=== PATIENT | male | born 1980 | race African-American/Black ===

== ENCOUNTER 2017-06-13 14:23 | Outpatient (CLI) | payer MEDICARE, MEDICAID | END 2017-06-13 14:24 | disposition home or self-care (01) | LOC: BICRAD 14:23 | PROVIDERS: ATTEND Student in an Organized Health Care Education/Training Program | DX: J18.9 Pneumonia, unspecified organism (principal) | CPT/HCPCS: 71046 ==

== ENCOUNTER 2018-11-24 16:58 | Inpatient (IN) | payer MEDICARE, MEDICAID ==
--- NOTE | 2018-11-24 17:37 | RAD ---
EXAM: Chest PA and lateral: HISTORY: Cough. Congestion. COMPARISON: 05/17/2010 FINDINGS: Heart: Cardiomegaly. Aorta: Mild pulmonary vascular prominence. Pulmonary vessels: Normal Costophrenic angles: Costophrenic angles are clear. Lungs: Bibasilar interstitial and alveolar opacities. Air bronchograms in the left lower lobe. Pneumothorax: No pneumothorax Osseous structures: No osseous abnormalities IMPRESSION: 1. Congestive heart failure. 2. Superimposed left lower lobe infiltrate. Continued surveillance to ensure resolution.
[2018-11-24] MEDS ORDERED: Piperacillin/Tazobactam 4.5 GM VIAL ONE (17:43)
[2018-11-24 17:51] LABS: #Lymphocytes 1.2 thou/uL (1.20-3.40); #Monocytes 0.5 thou/uL (0.11-0.59); #Neutrophils 1.9 thou/uL (1.40-6.50); %Basophils 0.9 % (0.0-1.0); %Eosinophils 1.3 % (0.0-10.0); %Lymphocytes 32.6 % (21.0-51.0); %Monocytes 13.4 % (0.0-10.0); %Neutrophils 51.9 % (42.0-75.0); Hemoglobin 15.3 g/dL (14.0-18.0); Mean Corpuscular HGB CONC 31.6 g/dL (32.0-36.0); Mean Corpuscular Hemoglobin 29.1 pg (27.0-31.0); RBC Distribution Width 12.4 % (11.5-14.5); Red Blood Cell (RBC) Count 5.27 mill/uL (4.70-6.10); White Blood Cell (WBC) Count 3.7 thou/uL (4.8-10.8)
[2018-11-24 18:08] LABS: Mean Platelet Volume 9.4 fL (7.4-10.4); Platelet Count 114 thou/uL (130-400)
[2018-11-24 18:09] LABS: ALT (SGPT) 24 U/L (8-55); AST (SGOT) 25 U/L (5-34); Albumin 3.6 g/dL (3.5-5.0); Alkaline Phosphatase 77 U/L (40-150); Anion Gap 12 mmol/L (10-20); BUN (Urea Nitrogen) 13 mg/dL (8.9-20.6); Bilirubin, Total 0.8 mg/dL (0.2-1.2); Calc. Creatinine Clearance 0 mL/min (70-130); Calcium 9.3 mg/dL (7.8-10.44); Carbon Dioxide 28 mmol/L (22-29); Chloride 104 mmol/L (98-107); Estimated GFR-MDRD Greater than 90; Globulin 4.2 g/dL (2.4-3.5); Glucose 90 mg/dL (70-105); Potassium 3.5 mmol/L (3.5-5.1); Protein, Total 7.8 g/dL (6.0-8.3); Sodium 140 mmol/L (136-145)
--- NOTE | 2018-11-24 18:55 | PDOC.FPRHP ---
- History of Present Illness Chief Complaint: cough History of Present Illness: 38yo M with pmh of HIV presents from clinic with 2 week hx of worsening cough and congestion with 2 day hx of associated SOB. Denies fever/chills, no CP, no orthopnea, no paroxysmal nocturnal dyspnea. No transforming factors. No other related symptoms per ROS below. In clinic pt was reported to be unable to finish sentences without taking a breath 2/2 sob but since arrival at ED pt reports he is feeling much better and is no longer SOB. Pt also has hx of depression (no longer requiring meds) but reports return of some depressive symptoms over the last 2 days. Regarding HIV status pt is on genvoya and follows with Dr. Kasper. He reports good compliance with his medications and reports that was given good report at his last visit. ED Course: Damir Love duoneb - Allergies/Adverse Reactions Allergies Allergy/AdvReac Type Severity Reaction Status Date / Time No Known Drug Allergies Allergy Unverified 11/24/18 20:10 pecan nut Allergy Verified 11/24/18 20:30 - Home Medications Medication Instructions Recorded Confirmed Type Cetirizine HCl [Zyrtec] 10 mg PO DAILY 11/24/18 11/24/18 History Elviteg/Cob/Emtri/Tenof Alafen 1 each PO DAILY 11/24/18 11/24/18 History [Genvoya Tablet] Gabapentin [Gralise] 300 mg PO BID 11/24/18 11/24/18 History Oxybutynin Chloride [Oxybutynin 5 mg PO DAILY 11/24/18 11/24/18 History Chloride ER] - History PMHx: HIV, Depression PSHx: none FHx: CAD, HTN Social: smokes 1-2 cigarettes per day for last 15 years, no alcohol/drugs - Review of Systems General: denies: fever/chills, fatigue ENT: reports: nasal congestion. denies: rhinorrhea Respiratory: reports: cough, congestion, shortness of breath Cardiovascular: denies: chest pain, palpitation, edema, paroxysmal nocturnal dyspnea, orthopnea Gastrointestinal: reports: constipation (last BM 1 week ago). denies: nausea, vomiting, diarrhea Genitourinary: denies: dysuria, polyuria Skin: denies: rashes, lesions Musculoskeletal: denies: pain, tenderness Neurological: denies: numbness, syncope, seizure Psychological: reports: depression. denies: anxiety - Vital signs BP: 140/106, Pulse: 104, Resp: 22, Temp: 98.7 (Oral), Pain: 3, O2 sat: 96 on Room Air, Time: 11/24/2018 17:01. weight 103kg - Physical Exam Constitutional: NAD, awake, alert and oriented HEENT: EOMI, grossly normal vision, grossly normal hearing, MMM Neck: supple, trachea midline Chest: no-tender to palpation Heart: RRR, normal S1/S2 Lungs: no respiratory distress, other (inspiratory/expiratory crackles on R mid and lower lung) Abdomen: soft, non-tender Musculoskeletal: normal structure, normal tone Neurological: no focal deficit, normal sensation Skin: no rash/lesions, good turgor Heme/Lymphatic: no purpura, no petechia Psychiatric: normal mood and affect, good judgment and insight FMR H&P: Results - Labs Result Diagrams: 11/24/18 17:20 11/24/18 17:20 Lab results: WBC 3.7 thou/uL (4.8-10.8) L 11/24/18 17:20 Hgb 15.3 g/dL (14.0-18.0) 11/24/18 17:20 Hct 48.5 % (42.0-52.0) 11/24/18 17:20 MCV 92.0 fL (78.0-98.0) 11/24/18 17:20 Plt Count 114 thou/uL (130-400) L 11/24/18 17:20 Neutrophils % 51.9 % (42.0-75.0) 11/24/18 17:20 Sodium 140 mmol/L (136-145) 11/24/18 17:20 Potassium 3.5 mmol/L (3.5-5.1) 11/24/18 17:20 Chloride 104 mmol/L (98-107) 11/24/18 17:20 Carbon Dioxide 28 mmol/L (22-29) 11/24/18 17:20 BUN 13 mg/dL (8.9-20.6) 11/24/18 17:20 Creatinine 1.03 mg/dL (0.7-1.3) 11/24/18 17:20 Glucose 90 mg/dL (70-105) 11/24/18 17:20 Lactic Acid 0.8 mmol/L (0.5-2.2) 11/24/18 17:54 Calcium 9.3 mg/dL (7.8-10.44) 11/24/18 17:20 Total Bilirubin 0.8 mg/dL (0.2-1.2) 11/24/18 17:20 AST 25 U/L (5-34) 11/24/18 17:20 ALT 24 U/L (8-55) 11/24/18 17:20 Alkaline Phosphatase 77 U/L (40-150) 11/24/18 17:20 B-Natriuretic Peptide 32.6 pg/mL (0-100) 11/24/18 17:20 Serum Total Protein 7.8 g/dL (6.0-8.3) 11/24/18 17:20 Albumin 3.6 g/dL (3.5-5.0) 11/24/18 17:20 FMR H&P: A/P - Problem List (1) Sepsis Current Visit: Yes Status: Acute Code(s): A41.9 - SEPSIS, UNSPECIFIED ORGANISM (2) CAP (community acquired pneumonia) Current Visit: Yes Status: Acute Code(s): J18.9 - PNEUMONIA, UNSPECIFIED ORGANISM (3) Leukopenia Current Visit: Yes Status: Acute Code(s): D72.819 - DECREASED WHITE BLOOD CELL COUNT, UNSPECIFIED (4) Constipation Current Visit: Yes Status: Acute Code(s): K59.00 - CONSTIPATION, UNSPECIFIED (5) History of depression Current Visit: Yes Status: Acute Code(s): Z86.59 - PERSONAL HISTORY OF OTHER MENTAL AND BEHAVIORAL DISORDERS (6) HIV disease Current Visit: Yes Status: Acute Code(s): B20 - HUMAN IMMUNODEFICIENCY VIRUS [HIV] DISEASE - Plan Sepsis 2/2 CAP in the setting of leukopenia 2/2 HIV A- pt meeting sirs criteria on admission though looking much better clinically after duoneb and first dose of ABX. Absolute neutrophil count 1920 showing no neutropenia. CXR shows R lower lobe infiltrate. LA at 0.8. WBC 3.2. Presentation atypical for pneumocystis P- continue Vancomycin and Zosyn -LR at 125ml/hr, likely transition to PO tomorrow if pt remains stable not meeting SIRS criteria -duoneb prn -mucinex -solumedrol 125mg x1 -CD4 count and [id number] for further risk stratification for pneumocystis pneumonia -influenza/viral resp panel -urine legionella and s. pneumoniae ag -procal -AM procal/CBC Constipation A- no BM in 1 week on ROS, no pain/distension P- miralax now -senna prn cardiomegaly A- other than SOB and cardiomegaly on CXR no s/s of CHF. BNP 32. Pt is not fluid overloaded. P- will get ECHO depression A- pt not requiring medication but has years ago. currently since pt has sx for only 2 days he does not meet criteria for MDD Dx P- f/u outpt if symptoms persist HIV A- reports to be well controlled, does not know recent cd4 count P- will check CD4 -continue home meds CODE: FULL
[2018-11-24] MEDS ORDERED: Calcium Carbonate 500 MG ChewTAB PO PRN (19:36)
[2018-11-24] MEDS ORDERED: Senokot S 8.6-50 MG TAB PO PRN (19:36)
[2018-11-24] MEDS ORDERED: Acetaminophen 325 MG TAB PO PRN (19:36)
[2018-11-24] MEDS ORDERED: Ondansetron ODT 4 MG TAB PO PRN (19:36)
[2018-11-24] MEDS ORDERED: Melatonin 3 MG TAB PO PRN (19:39)
[2018-11-24] MEDS ORDERED: Polyethylene Glycol 3350 17 GM Packet PO SCH (20:15)
[2018-11-24 20:18] VITALS: BMI 33.7
[2018-11-24] MEDS: Lactated Ringer's 1,000 ML IV SCH (21:10)
[2018-11-24] MEDS ORDERED: methylPREDNISolone Sod Succ/PF 125 MG/2 ML VIAL IVP SCH (22:00)
[2018-11-25] MEDS: Vancomycin HCl 1.75 GM in Sodium Chloride 0.9% 500 ML IVPB SCH ×3 (01:26→16:13)
[2018-11-25] MEDS: Lactated Ringer's 1,000 ML IV SCH ×2 (03:49→12:20)
[2018-11-25 04:08] LABS: Strep pneumo Urine Ag NEGATIVE (NEGATIVE)
[2018-11-25 04:09] LABS: Legionella Urinary Ag Negative (Negative)
[2018-11-25 05:21] LABS: Anion Gap 12 mmol/L (10-20); BUN (Urea Nitrogen) 12 mg/dL (8.9-20.6); Calc. Creatinine Clearance 142 mL/min (70-130); Calcium 9.1 mg/dL (7.8-10.44); Carbon Dioxide 24 mmol/L (22-29); Chloride 105 mmol/L (98-107); Estimated GFR-MDRD Greater than 90; Glucose 137 mg/dL (70-105); Potassium 3.4 mmol/L (3.5-5.1); Sodium 138 mmol/L (136-145)
[2018-11-25 05:44] LABS: Band 3 % (5-11); Hemoglobin 15.5 g/dL (14.0-18.0); Large Platelets SLIGHT; Lymphocytes 14 % (21-51); MDiff Complete? YES; Mean Corpuscular HGB CONC 31.5 g/dL (32.0-36.0); Mean Corpuscular Hemoglobin 29.3 pg (27.0-31.0); Mean Corpuscular Volume 92.8 fL (78.0-98.0); Mean Platelet Volume 9.8 fL (7.4-10.4); Monocytes 3 % (0-10); Neutrophil 79 % (42-75); Platelet Count 114 thou/uL (130-400); Platelet Morphology Comment Appears Decreased; RBC Distribution Width 12.4 % (11.5-14.5); Reactive Lymphocytes 1 % (0-10); Red Blood Cell (RBC) Count 5.29 mill/uL (4.70-6.10); White Blood Cell (WBC) Count 4.7 thou/uL (4.8-10.8)
--- NOTE | 2018-11-25 05:51 | PDOC.FM ---
- Subjective Subjective: Pt denies any complaints through the night aside from feeling warm. He feels like his breathing has improved compared to the last few days. Denies feeling any fevers or chills per say. - Objective MAR Reviewed: Yes Vital Signs & Weight: Vital Signs (12 hours) Temp Pulse Resp BP Pulse Ox 11/25/18 04:05 98.4 F 54 L 22 H 173/97 H 94 L 11/25/18 00:00 99.1 F 69 20 149/99 H 91 L 11/24/18 20:17 98.0 F 83 20 157/80 H 93 L Weight Weight 109.724 kg Result Diagrams: 11/25/18 04:11 11/25/18 04:11 Phys Exam - Physical Examination Constitutional: NAD HEENT: moist MMs Neck: full ROM Crackles and soft fine wheezes throughout Diminished at the bases Cardiovascular: RRR, no significant murmur Gastrointestinal: soft, non-tender Musculoskeletal: no edema Psychiatric: normal affect, A&O x 3 Deviation from normal: Pt was very diaphoretic, gown was wet to touch Dx/Plan (1) CAP (community acquired pneumonia) Code(s): J18.9 - PNEUMONIA, UNSPECIFIED ORGANISM Status: Acute Qualifiers: Laterality: right Lung location: lower lobe of lung Qualified Code(s): J18.1 - Lobar pneumonia, unspecified organism (2) HIV disease Code(s): B20 - HUMAN IMMUNODEFICIENCY VIRUS [HIV] DISEASE Status: Acute (3) History of depression Code(s): Z86.59 - PERSONAL HISTORY OF OTHER MENTAL AND BEHAVIORAL DISORDERS Status: Acute (4) Leukopenia Code(s): D72.819 - DECREASED WHITE BLOOD CELL COUNT, UNSPECIFIED Status: Acute Qualifiers: Leukopenia type: lymphocytopenia Qualified Code(s): D72.810 - Lymphocytopenia (5) Sepsis Code(s): A41.9 - SEPSIS, UNSPECIFIED ORGANISM Status: Acute Qualifiers: Sepsis type: sepsis due to unspecified organism Qualified Code(s): A41.9 - Sepsis, unspecified organism (6) Constipation Code(s): K59.00 - CONSTIPATION, UNSPECIFIED Status: Acute - Plan Plan: Sepsis 2/2 CAP in the setting of leukopenia 2/2 HIV - Met sirs criteria on presentation. Absolute neutrophil count 1920 showing no neutropenia. CXR shows left lower lobe infiltrate. Presentation atypical for pneumocystis - continue Vancomycin and Zosyn -LR at 125ml/hr for sepsis, attempt transition to PO today -duoneb prn -mucinex -solumedrol 125mg x1 -CD4 count and [id number] for further risk stratification for pneumocystis pneumonia -influenza/viral resp panel -urine legionella and s. pneumoniae ag were negative -procal negative x2 -WBC 3.7 -> 4.7 -Flu negative, Resp culture normal manda, preliminary BC no growth -Spoke with Dr. Kasper, stated that pt's last CD4 was 203, agreed with current plan of treating as a CAP Constipation - no BM in 1 week on ROS, no pain/distension - miralax now - senna prn Cardiomegaly - other than SOB and cardiomegaly on CXR no s/s of CHF. BNP 32. Pt is not fluid overloaded. - will get ECHO today Depressive sx - pt not requiring medication but has years ago. currently since pt has sx for only 2 days he does not meet criteria for MDD Dx - f/u outpt if symptoms persist HIV - reports to be well controlled, does not know recent cd4 count - will check CD4 -continue home meds Hypokalemia - Potassium 3.4 - Supplement with 40 KCl CODE: FULL Dispo: Medical floor Expected LOS: 2-4 days
[2018-11-25] MEDS: Piperacillin/Tazobactam 4.5 GM in Sodium Chloride 0.9% 100 ML IVPB SCH ×4 (06:03→17:58)
[2018-11-25] MEDS: guaiFENesin ER 600 MG TAB PO SCH ×2 (07:45→20:35)
[2018-11-25] MEDS: Loratadine 10 MG TAB PO SCH (07:45)
[2018-11-25] MEDS: Enoxaparin Sodium 40 MG/0.4 ML SYRINGE SC SCH (07:45)
[2018-11-25] MEDS ORDERED: Potassium Chloride 20 MEQ TAB PO SCH (08:00)
[2018-11-25] MEDS ORDERED: (Elviteg/Cob/Emtri/Tenof Alafen [Genvoya Tablet] PO SCH (09:00)
[2018-11-25] MEDS: Oxybutynin ER 5 MG TAB PO SCH (11:10)
--- NOTE | 2018-11-25 12:29 | PRG ---
DATE OF SERVICE: 11/25/2018 I have discussed the case with Dr. Trip Kennedy and agree with his assessment plan. Mr. Soto is a pleasant 38-year-old black man with HIV treated with retroviral therapy per Dr. Kasper. He was admitted with some cough and shortness of breath and found to have pneumonia. Clinically, he looks and feels much better today. We will continue his antibiotic treatment in anticipation of possibly discharging him on Tuesday. Job ID: [id number]
[2018-11-25] MEDS ORDERED: Azithromycin 250 MG TAB PO SCH (18:15)
[2018-11-25] MEDS: Cefdinir 300 MG CAP PO SCH (20:34)
[2018-11-25] MEDS: hydrOXYzine 25 MG TAB PO PRN (21:13)
[2018-11-26] MEDS: Lactated Ringer's 1,000 ML IV SCH ×2 (04:40)
--- NOTE | 2018-11-26 06:05 | PDOC.FM ---
- Subjective Subjective: Pt states he is doing much better this morning. He was able to ambulate outside and denies experiencing any SOB with this. He does note continued improvement following duoneb treatments. No supplemental O2 requirements. Was advised that his cultures came back positive for pseudomonas and we would change abx appropriately. - Objective MAR Reviewed: Yes Vital Signs & Weight: Vital Signs (12 hours) Temp Pulse Resp BP Pulse Ox 11/25/18 20:00 98.6 F 74 18 131/76 92 L 11/25/18 19:39 92 L 11/25/18 19:01 95 16 95 Weight Admit Weight 109.724 kg Weight 109.724 kg I&O: 11/24/18 11/25/18 11/26/18 06:59 06:59 06:59 Intake Total 1319 960 Balance 1319 960 Result Diagrams: 11/26/18 06:21 11/26/18 06:21 Phys Exam - Physical Examination Constitutional: NAD HEENT: moist MMs Neck: supple, full ROM Respiratory: no wheezing, no rhonchi Diffuse rales in middle and lower [place], diminished in LLL Cardiovascular: RRR, no significant murmur Gastrointestinal: soft, non-tender Musculoskeletal: no edema, pulses present Neurological: moves all 4 limbs Psychiatric: normal affect, A&O x 3 Skin: no rash Dx/Plan (1) CAP (community acquired pneumonia) Code(s): J18.9 - PNEUMONIA, UNSPECIFIED ORGANISM Status: Acute Qualifiers: Laterality: right Lung location: lower lobe of lung Qualified Code(s): J18.1 - Lobar pneumonia, unspecified organism (2) HIV disease Code(s): B20 - HUMAN IMMUNODEFICIENCY VIRUS [HIV] DISEASE Status: Acute (3) History of depression Code(s): Z86.59 - PERSONAL HISTORY OF OTHER MENTAL AND BEHAVIORAL DISORDERS Status: Acute (4) Leukopenia Code(s): D72.819 - DECREASED WHITE BLOOD CELL COUNT, UNSPECIFIED Status: Acute Qualifiers: Leukopenia type: lymphocytopenia Qualified Code(s): D72.810 - Lymphocytopenia (5) Sepsis Code(s): A41.9 - SEPSIS, UNSPECIFIED ORGANISM Status: Acute Qualifiers: Sepsis type: sepsis due to unspecified organism Qualified Code(s): A41.9 - Sepsis, unspecified organism (6) Constipation Code(s): K59.00 - CONSTIPATION, UNSPECIFIED Status: Resolved Qualifiers: Constipation type: chronic idiopathic constipation Qualified Code(s): K59.04 - Chronic idiopathic constipation - Plan Plan: Sepsis 2/2 CAP in the setting of leukopenia 2/2 HIV Met sirs criteria on presentation. Absolute neutrophil count 1920 showing no neutropenia. CXR shows left lower lobe infiltrate. Presentation atypical for pneumocystis -Initially started on Vanc and Zosyn -LR at 125ml/hr for sepsis, attempt transition to PO today -duoneb prn -mucinex -solumedrol 125mg x1 -CD4 count and [id number]-B-[id number] for further risk stratification for pneumocystis pneumonia -influenza/viral resp panel -urine legionella and s. pneumoniae ag were negative -procal negative x2 -WBC 3.7 -> 4.7 -> 6.1 -Flu negative, Resp culture normal manda, preliminary BC no growth -Spoke with Dr. Kasper, stated that pt's last CD4 was 203, agreed with current plan of treating as a CAP, switched to Azithro and Omnicef, sputum cultures presumptive pseudomonas switched to levaquin -No current supplemental O2 requirements, ambulates without dyspnea Constipation - resolved - no BM in 1 week on ROS, no pain/distension - miralax and senna prn - 2 BM since admission Cardiomegaly - other than SOB and cardiomegaly on CXR no s/s of CHF. BNP 32. Pt is not fluid overloaded. - Echo: EF 55-60%, mild-moderate tricuspid regurgitation Depressive sx - pt not requiring medication but has years ago. currently since pt has sx for only 2 days he does not meet criteria for MDD Dx - f/u outpt if symptoms persist HIV - reports to be well controlled, does not know recent cd4 count - will check CD4 - continue home meds - follow up with Dr. Kasper as outpt Hypokalemia - Potassium 3.4 - Supplement with 40 KCl CODE: FULL Dispo: Medical floor Expected LOS 1-2 days
[2018-11-26 06:33] LABS: #Lymphocytes 1.1 thou/uL (1.20-3.40); #Monocytes 0.7 thou/uL (0.11-0.59); #Neutrophils 4.3 thou/uL (1.40-6.50); %Basophils 0.4 % (0.0-1.0); %Lymphocytes 17.5 % (21.0-51.0); %Neutrophils 71.1 % (42.0-75.0); Hemoglobin 13.5 g/dL (14.0-18.0); Mean Corpuscular HGB CONC 31.1 g/dL (32.0-36.0); Mean Corpuscular Hemoglobin 28.9 pg (27.0-31.0); Mean Corpuscular Volume 92.9 fL (78.0-98.0); Mean Platelet Volume 9.8 fL (7.4-10.4); Platelet Count 122 thou/uL (130-400); RBC Distribution Width 12.4 % (11.5-14.5); Red Blood Cell (RBC) Count 4.67 mill/uL (4.70-6.10); White Blood Cell (WBC) Count 6.1 thou/uL (4.8-10.8)
[2018-11-26] MEDS ORDERED: Potassium Chloride 20 MEQ TAB PO SCH (06:45)
[2018-11-26 06:51] LABS: Anion Gap 10 mmol/L (10-20); BUN (Urea Nitrogen) 11 mg/dL (8.9-20.6); Calc. Creatinine Clearance 162 mL/min (70-130); Carbon Dioxide 27 mmol/L (22-29); Chloride 109 mmol/L (98-107); Estimated GFR-MDRD Greater than 90; Glucose 126 mg/dL (70-105); Potassium 3.8 mmol/L (3.5-5.1); Sodium 142 mmol/L (136-145)
[2018-11-26] MEDS ORDERED: Azithromycin 250 MG TAB PO SCH (09:00)
[2018-11-26] MEDS ORDERED: Gabapentin 300 MG CAP PO SCH ×3 (09:00→21:00)
[2018-11-26] MEDS: Loratadine 10 MG TAB PO SCH (09:16)
[2018-11-26] MEDS: Cefdinir 300 MG CAP PO SCH (09:16)
[2018-11-26] MEDS: guaiFENesin ER 600 MG TAB PO SCH ×2 (09:17→19:58)
[2018-11-26] MEDS: Oxybutynin ER 5 MG TAB PO SCH (09:17)
[2018-11-26] MEDS: Enoxaparin Sodium 40 MG/0.4 ML SYRINGE SC SCH (09:20)
--- NOTE | 2018-11-26 13:09 | PRG ---
DATE OF SERVICE: 11/26/2018 Mr. Soto continues to look and feel much better. He is very jovial and talkative this morning. White count is dropped to 6100. He is afebrile. He will be transitioned to oral antibiotics for his pneumonia and discharge. Job ID: [id number]
[2018-11-26] MEDS: Gabapentin 300 MG CAP PO SCH (19:58)
[2018-11-26] MEDS: hydrOXYzine 25 MG TAB PO PRN (22:16)
--- NOTE | 2018-11-27 05:14 | PDOC.FM ---
- Subjective Subjective: Patient is resting comfortably when I saw him this morning. He states that he is short of breath this morning, but overall feeling much better. He is breathing 20 breaths per minute, 93% oxygen saturation on RA, and in no respiratory distress. He is coughing while speaking with me. He complains of a headache located in the occipital region that is a 2/10 in intensity. He woke up with this headache today. Patient denies any chest pain or lower extremity swelling. - Objective MAR Reviewed: Yes Vital Signs & Weight: Vital Signs (12 hours) Temp Pulse Resp BP Pulse Ox 11/26/18 20:00 98.3 F 92 20 131/87 93 L 11/26/18 19:42 93 L 11/26/18 19:13 82 20 93 L Weight Admit Weight 109.724 kg Weight 109.724 kg I&O: 11/25/18 11/26/18 11/27/18 06:59 06:59 06:59 Intake Total 1319 3060 720 Output Total 300 Balance 1319 2760 720 Result Diagrams: 11/27/18 05:59 11/27/18 05:59 Radiology Reviewed by me: Yes (CHF. LLL infiltrate ) Phys Exam - Physical Examination Constitutional: NAD HEENT: PERRLA, moist MMs Neck: full ROM Respiratory: wheezing present +rales and rhonchi diffusely, worse in the left lower lobe. Cardiovascular: RRR, no significant murmur, no rub Gastrointestinal: soft, non-tender, no distention, positive bowel sounds Musculoskeletal: no edema, pulses present Neurological: non-focal, moves all 4 limbs Psychiatric: normal affect, A&O x 3 Skin: no rash, normal turgor Dx/Plan (1) Sepsis Code(s): A41.9 - SEPSIS, UNSPECIFIED ORGANISM Status: Acute Qualifiers: Sepsis type: Pseudomonas Qualified Code(s): A41.52 - Sepsis due to Pseudomonas (2) CAP (community acquired pneumonia) Code(s): J18.9 - PNEUMONIA, UNSPECIFIED ORGANISM Status: Acute Qualifiers: Laterality: right Lung location: lower lobe of lung Qualified Code(s): J18.1 - Lobar pneumonia, unspecified organism (3) HIV disease Code(s): B20 - HUMAN IMMUNODEFICIENCY VIRUS [HIV] DISEASE Status: Chronic (4) History of depression Code(s): Z86.59 - PERSONAL HISTORY OF OTHER MENTAL AND BEHAVIORAL DISORDERS Status: Chronic (5) Leukopenia Code(s): D72.819 - DECREASED WHITE BLOOD CELL COUNT, UNSPECIFIED Status: Acute Qualifiers: Leukopenia type: lymphocytopenia Qualified Code(s): D72.810 - Lymphocytopenia (6) Constipation Code(s): K59.00 - CONSTIPATION, UNSPECIFIED Status: Resolved Qualifiers: Constipation type: chronic idiopathic constipation Qualified Code(s): K59.04 - Chronic idiopathic constipation - Plan Plan: 1. Sepsis secondary to community acquired pneumonia - Improving -WBC: 3.7--> 4.7--> 6.1--> 4.5 - Pt has a hx of HIV. Dr. Kasper is his infectious disease specialist and was consulted. 2. CAP - Dr. Kasper recommended levaquin treatment for the CAP. He does not believe this is PCP. - Left lower lobe infiltrate on CXR. -Sputum ccx psuedomonas -Pending quant gold - Duonebs - Mucinex 3. Cardiomegaly - no acute CHF exacerbation 4. HIV - continue antiretrovirals. - follow up on CD4 count and need for any pneumonia ppx. - follow up on quant gold - Last CD4 count was 203. 5. Leukopenia -Improving - WBC 6.1 6. Constipation -resolved -continue docusate Disposition: Stable, discharge home today on PO levaquin for X8 more days.
[2018-11-27 06:15] LABS: #Lymphocytes 1.6 thou/uL (1.20-3.40); #Monocytes 0.7 thou/uL (0.11-0.59); #Neutrophils 2.2 thou/uL (1.40-6.50); %Basophils 0.2 % (0.0-1.0); %Eosinophils 0.8 % (0.0-10.0); %Lymphocytes 34.7 % (21.0-51.0); %Monocytes 14.9 % (0.0-10.0); %Neutrophils 49.4 % (42.0-75.0); Hemoglobin 13.6 g/dL (14.0-18.0); Mean Corpuscular HGB CONC 31.7 g/dL (32.0-36.0); Mean Corpuscular Hemoglobin 29.5 pg (27.0-31.0); Mean Corpuscular Volume 93.1 fL (78.0-98.0); Mean Platelet Volume 8.8 fL (7.4-10.4); Platelet Count 149 thou/uL (130-400); RBC Distribution Width 12.5 % (11.5-14.5); White Blood Cell (WBC) Count 4.5 thou/uL (4.8-10.8)
[2018-11-27 06:47] LABS: Anion Gap 10 mmol/L (10-20); BUN (Urea Nitrogen) 9 mg/dL (8.9-20.6); Calc. Creatinine Clearance 171 mL/min (70-130); Calcium 8.8 mg/dL (7.8-10.44); Carbon Dioxide 29 mmol/L (22-29); Chloride 106 mmol/L (98-107); Estimated GFR-MDRD Greater than 90; Glucose 87 mg/dL (70-105); Potassium 3.6 mmol/L (3.5-5.1); Sodium 141 mmol/L (136-145)
[2018-11-27] MEDS: Enoxaparin Sodium 40 MG/0.4 ML SYRINGE SC SCH (08:46)
[2018-11-27] MEDS: guaiFENesin ER 600 MG TAB PO SCH (08:47)
[2018-11-27] MEDS: Loratadine 10 MG TAB PO SCH (08:47)
[2018-11-27] MEDS: Gabapentin 300 MG CAP PO SCH (08:47)
[2018-11-27] MEDS: Oxybutynin ER 5 MG TAB PO SCH (08:47)
[2018-11-27 10:09] LABS: %CD4 (Helper/Inducer) 21.3 % (30.8-58.5); Absolute CD4 341 /uL (359-1519); Lymphocytes/Gated Cell Count 1.6 x10E3/uL (0.7-3.1); Total Lymphocyte 37 % (Not Estab.); WBC Total Count 4.3 x10E3/uL (3.4-10.8)
[2018-11-27 11:46] VITALS: BP 125/82; TEMP 97.8
--- NOTE | 2018-11-27 11:55 | PRG ---
DATE OF SERVICE: 11/27/2018 Mr. Soto has been transitioned to oral medications and remains afebrile. He is clinically continue looking and feeling much better and will be discharged today. Job ID: [id number]
--- NOTE | 2018-11-28 13:02 | DIS ---
DATE OF ADMISSION: 11/24/2018 DATE OF DISCHARGE: 11/27/2018 RESIDENT: Aide Zambrano DO CONSULTATIONS: No consults. PROCEDURES: No procedures. DIAGNOSES: 1. Sepsis, secondary to community-acquired pneumonia. 2. Community-acquired pneumonia. 3. Cardiomegaly. 4. Human immunodeficiency virus. 5. Leukopenia. 6. Constipation. DISCHARGE MEDICATIONS: 1. Levaquin 750 mg p.o. once daily at 6 a.m. 2. Oxybutynin 5 mg p.o. daily. 3. Gabapentin 600 mg p.o. b.i.d. 4. Zyrtec 10 mg daily. 5. Genvoya 1 daily. 6. Acetaminophen 325 q.4 hours p.r.n. 7. Tums 500 mg q.4 hours p.r.n. 8. Mucinex 600 mg q.12 hours. 9. Melatonin 3 mg at bedtime p.r.n. HISTORY OF PRESENT ILLNESS AND HOSPITAL COURSE: The patient was seen in the emergency department on 11/24. He is a 38-year-old male with past medical history of HIV, presenting because of 2 weeks of worsening cough and congestion with 2 days of associated shortness of breath. The patient had no fevers or chills. No chest pain. No difficulty breathing at night. No orthopnea. The patient is having difficulty breathing and was short of breath in the emergency department. The patient is a patient of Dr. Kasper who follows him for his HIV status. He is in good compliance with his antiretroviral medications and his last CD4 count recorded by Dr. Kasper was 203. His white count on admission was 3.7, then 4.7, then 6.1, and then today 11/27, 4.5. Sputum cultures grew out pseudomonas. Blood cultures were negative. Respiratory viral panel showed human metapneumovirus. Flu A and B negative. Chest x-ray showed CHF and left lower lobe infiltrate. Echo showed an EF of 55% to 60% with [id number] tricuspid regurgitation. The patient was first started on vanc and zosyn. Those were discontinued, switched to azithromycin and Omnicef. Those were stopped and Levaquin [address] Kasper to treat community-acquired pneumonia. The patient's Quant Gold, Fungitell, and CD4 count are still pending. The urine Legionella antigen was negative. Urine Strep pneumo antigen also negative. Absolute CD4 count is 341 in the hospital. Delmar T-cells 21.3. DISPOSITION: The patient is stable. DISCHARGE INSTRUCTIONS: Discharged to home. Heart healthy diet. Activity, ad ivette. Follow up with Dr. Hines, primary care in 3 days at [facility]. Discharged on 8 days of Levaquin. Job ID: [id number]
--- NOTE | 2018-11-30 02:54 | PQF ---
[employer] Crystal Reports Winform Viewer RHONDA GONZALES LEWIS MD [id number] [id number] CLINICAL DOCUMENTATION CLARIFICATION FORM: POST DISCHARGE Addendum to original discharge summary date: ____ Late entry note date: __ DATE: 11-30-18 ATTN: Mitch Obrien Please exercise your independent, professional judgment in responding to the clarification form. Clinical indicators are provided on the bottom of this form for your review Can you please specify if HIV is symptomatic or asymptomatic? Please check appropriate box(s): [ ] AIDS /HIV Disease Please specify associated HIV Disease condition(s) if appropriate: [ ] Sepsis [ ] Pseudomonas Pneumonia [ ] Symptomatic HIV infection status [ ] Asymptomatic HIV infection status [ ] Non-specific serologic evidence of HIV [ ] Other diagnosis please specify [ ] Unable to determine For continuity of documentation, please document condition throughout progress notes and discharge summary. Thank You. CLINICAL INDICATORS: H&P 07/ pg1 Dr. Galvez Patient with hx of HIV admitted for sepsis related to respiratory source, likely Pneumonia H&P 11/[address] Galvez Patient follow up with Ranjith. Last seen May 2018. No AIDS defining disease as per patient. H&P 11/[address] Galvez Regarding HIV status pt is on taigo and follows with Dr. Kasper. He reports good compliance with his medication and reports that was given good report at his last visit H&P / pg5 Dr. Galvez Sepsis 2/2 CAP in the setting of leukopenia 2/2 HIV PN 11/[address] Kennedy Community Acquired Pneumonia PN 11/[address] Kennedy Absolute neutrophil count 1920 showing no neutropenia. CXR shows left lower lobe infiltrate. Presentation atypical for Pneumocystis PN 11/[address] Kennedy Cultures came back positive for Pseudomonas and he would change abs appropriately DS 11/[address] House Sepsis secondary to Community Acquired Pneumonia Laboratory: CD4 count:341 (11/24); WBC= 3.7 (11/24), 4.7 (11/25), 4.5 (11/27); Percent T-helper/Inducer Cells= 21.3% Microbiology 11/24 Respiratory Culture Final: Pseudomonas aeruginosa RISK FACTORS: H&P- Sepsis 2/2 CAP in the setting of leukopenia 2/2 HIV H&P- PMH: HIV H&P- Smokes 1-2 cigarettes per day for last 15 years TREATMENTS: PN 11/25- Retroviral Therapy JUL 27- Zosyn 4.5 gm IV JUL 27- Vancomycin Hcl 1 gm IV (This form is maintained as a part of the permanent medical record) 2014 [employer] All Rights Reserved Sandra [email or web address] [not provided] MTDD
[2018-11-30 15:10] LABS: QuantiFERON-TB Gold Plus Negative (Negative)
== END 2018-11-27 11:56 | disposition home or self-care (01) | DRG 871 ==
LOC: ERS 16:58 → T4-B 19:08
PROVIDERS: ADMIT Family Medicine; ATTEND Family Medicine
DX: A41.52 Sepsis due to Pseudomonas (principal); J15.1 Pneumonia due to Pseudomonas; F32.9 Major depressive disorder, single episode, unspecified; F17.210 Nicotine dependence, cigarettes, uncomplicated; K59.00 Constipation, unspecified; E87.6 Hypokalemia; I07.1 Rheumatic tricuspid insufficiency; Z21 Asymptomatic human immunodeficiency virus [HIV] infection status
CPT/HCPCS: 36415; 71046; 80048; 80053; 83605; 83880; 84145; 84484; 85025; 85048; 86361; 86480; 87040; 87070; 87077; 87205; 87449; 87633; 87804; 87899; 93005; 93306; 94640; 96365; 96367; J1650; J2543; J2930; J3370; J3490; J7050; J7620

== ENCOUNTER 2019-10-04 15:19 | Emergency (ER) | payer MEDICARE, MEDICAID, OTHER ==
--- NOTE | 2019-10-04 16:58 | RAD ---
PORTABLE CHEST: 10/04/19 INDICATIONS: Cough. COMPARISON: 11/24/18. The lungs are well aerated although there is a relatively poor inspiration which limits the study. I cannot exclude some hazy infiltrate in the left lung base. If there is concern of left basilar pneumo jayy, recommend upright PA and lateral views of the chest with better inspiration. Heart size upper normal and stable. IMPRESSION: Question left basilar infiltrate. Upright PA and lateral views of the chest with better inspiration i s recommended. POS: AGW
[2019-10-04 17:42] LABS: #Lymphocytes 1.5 thou/uL (1.20-3.40); #Monocytes 0.3 thou/uL (0.11-0.59); #Neutrophils 1.8 thou/uL (1.40-6.50); %Basophils 0.9 % (0.0-1.0); %Eosinophils 0.8 % (0.0-10.0); %Lymphocytes 40.5 % (21.0-51.0); %Monocytes 9.1 % (0.0-10.0); %Neutrophils 48.7 % (42.0-75.0); Hemoglobin 15.6 g/dL (14.0-18.0); Mean Corpuscular HGB CONC 30.6 g/dL (32.0-36.0); Mean Corpuscular Hemoglobin 28.7 pg (27.0-31.0); Mean Corpuscular Volume 93.8 fL (78.0-98.0); Mean Platelet Volume 8.9 fL (7.4-10.4); Platelet Count 152 thou/uL (130-400); RBC Distribution Width 12.2 % (11.5-14.5); Red Blood Cell (RBC) Count 5.42 mill/uL (4.70-6.10); White Blood Cell (WBC) Count 3.8 thou/uL (4.8-10.8)
[2019-10-04 18:25] LABS: Bilirubin, Total 0.4 mg/dL (0.2-1.2)
[2019-10-04 18:32] LABS: ALT (SGPT) 12 U/L (8-55); AST (SGOT) 21 U/L (5-34); Albumin 3.7 g/dL (3.5-5.0); Alkaline Phosphatase 71 U/L (40-110); Anion Gap 13 mmol/L (10-20); BUN (Urea Nitrogen) 10 mg/dL (8.9-20.6); Calc. Creatinine Clearance 0 mL/min (70-130); Calcium 9.3 mg/dL (7.8-10.44); Carbon Dioxide 25 mmol/L (22-29); Chloride 107 mmol/L (98-107); Estimated GFR-MDRD 82; Globulin 4.3 g/dL (2.4-3.5); Glucose 76 mg/dL (70-105); Potassium 4.4 mmol/L (3.5-5.1); Sodium 141 mmol/L (136-145)
[2019-10-05 10:42] LABS: SARS-CoV-2 MS2 Positive; SARS-CoV-2 N Gene Negative; SARS-CoV-2 S Gene Negative; SARS-CoV-2 orf1ab Negative
== END 2019-10-04 20:00 | disposition home or self-care (01) ==
LOC: ERS 15:19
DX: J18.9 Pneumonia, unspecified organism (principal); Z20.828 Contact with and (suspected) exposure to other viral communicable diseases; Z21 Asymptomatic human immunodeficiency virus [HIV] infection status; F32.9 Major depressive disorder, single episode, unspecified; Z79.899 Other long term (current) drug therapy
CPT/HCPCS: 71045; 80053; 85025; 99283; U0003; 36415; 87635

== ENCOUNTER 2020-06-02 07:42 | Emergency (ER) | payer MEDICARE, MEDICAID ==
[2020-06-02] MEDS ORDERED: Morphine 4 MG/ML VIAL ONE (09:12)
--- NOTE | 2020-06-02 09:20 | RAD ---
RIGHT ANKLE 3 VIEWS: Date: 06/02/2020 HISTORY: Injury with pain. FINDINGS: There is a trimalleolar fracture at the ankle. Slightly oblique, mildly displaced fracture of the lat eral malleolus. There is a slightly oblique and mildly displaced fracture of the medial malleolus. Th ere is a fracture of the posterior malleolus noted in the lateral projection. Associated soft tissue swelling. IMPRESSION: Trimalleolar fracture at right ankle. POS: AGW
== END 2020-06-02 15:04 | disposition home or self-care (01) ==
LOC: ERS 07:42
DX: S82.851A Displaced trimalleolar fracture of right lower leg, initial encounter for closed fracture (principal); W00.0XXA Fall on same level due to ice and snow, initial encounter; Z79.899 Other long term (current) drug therapy; B20 Human immunodeficiency virus [HIV] disease; F17.210 Nicotine dependence, cigarettes, uncomplicated
CPT/HCPCS: 27816; 96372; J2270

== ENCOUNTER 2020-06-20 06:01 | Day surgery (SDC) | payer MEDICARE, MEDICAID ==
[2020-06-18 11:27] VITALS: BMI 32.3
[2020-06-20] MEDS ORDERED: Fentanyl 100 MCG/2 ML VIAL ONE ×3 (06:48→09:15)
[2020-06-20] MEDS ORDERED: Midazolam HCl 2 mg/2 ml Vial ONE ×2 (06:48→06:49)
[2020-06-20] MEDS ORDERED: Bupivacaine HCl 0.5%/Epinephrine 1:200,000/PF 30 ml Vial ONE (09:57)
[2020-06-20] MEDS ORDERED: PROPOFOL 200 MG/20 ML VIAL ONE (09:57)
[2020-06-20] MEDS ORDERED: Ketorolac Tromethamine 30 MG/ML VIAL ONE (09:57)
[2020-06-20] MEDS ORDERED: Ondansetron PF 4 MG/2 ML Vial ONE (09:57)
== END 2020-06-20 12:31 | disposition home or self-care (01) ==
LOC: SDC 06:01
PROVIDERS: ATTEND Orthopaedic Surgery
PROC: 0QSJ04Z Reposition Right Fibula with Internal Fixation Device, Open Approach (ICD-10-PCS; principal; 2020-06-20)
PROC: 0QSG04Z Reposition Right Tibia with Internal Fixation Device, Open Approach (ICD-10-PCS; 2020-06-20)
PROC: 0QSG04Z Reposition Right Tibia with Internal Fixation Device, Open Approach (ICD-10-PCS; 2020-06-20)
PROC: 3E0T3BZ Introduction of Anesthetic Agent into Peripheral Nerves and Plexi, Percutaneous Approach (ICD-10-PCS; 2020-06-20)
DX: S82.851A Displaced trimalleolar fracture of right lower leg, initial encounter for closed fracture (principal); G89.18 Other acute postprocedural pain; F41.9 Anxiety disorder, unspecified; F17.200 Nicotine dependence, unspecified, uncomplicated; Z79.899 Other long term (current) drug therapy; Z91.018 Allergy to other foods; Z21 Asymptomatic human immunodeficiency virus [HIV] infection status; W19.XXXA Unspecified fall, initial encounter
CPT/HCPCS: 27822; 64445; 64447; 73610; 76000; 99283; C1713 ×4; J0690; J1885; J2250; J2405; J2704; J3010

== ENCOUNTER 2020-06-20 22:02 | Emergency (ER) | payer MEDICARE, MEDICAID | END 2020-06-21 | disposition home or self-care (01) | LOC: ERS 22:02 | DX: L76.22 Postprocedural hemorrhage of skin and subcutaneous tissue following other procedure (principal); B20 Human immunodeficiency virus [HIV] disease; F17.210 Nicotine dependence, cigarettes, uncomplicated | CPT/HCPCS: 99283 ==

== ENCOUNTER 2020-07-18 11:08 | Outpatient (CLI) | payer MEDICARE, MEDICAID ==
[2020-06-18 05:18] LABS: SARS-CoV-2 PCR by NAA Not Detected (NotDetected)
[2020-07-19 02:31] LABS: SARS-CoV-2 PCR by NAA Not Detected (NotDetected)
== END 2020-07-18 11:09 | disposition home or self-care (01) ==
LOC: LABBT 11:08
PROVIDERS: ATTEND Orthopaedic Surgery
DX: Z01.812 Encounter for preprocedural laboratory examination (principal); S82.851A Displaced trimalleolar fracture of right lower leg, initial encounter for closed fracture; Z20.822 Contact with and (suspected) exposure to COVID-19
CPT/HCPCS: U0003 ×2; U0005 ×2; 87635

== ENCOUNTER 2020-07-21 13:25 | Observation (INO) | payer MEDICARE, MEDICAID ==
[~2020-07-21 13:25] MED LIST: Bupivacaine HCl 0.5%/Epinephrine 1:200,000/PF 30 ml Vial ONE; Dexamethasone 20 MG/5 ML VIAL ONE; Ondansetron PF 4 MG/2 ML Vial ONE; PROPOFOL 200 MG/20 ML VIAL ONE
[2020-07-21] MEDS ORDERED: Midazolam HCl 2 mg/2 ml Vial ONE (16:07)
[2020-07-21] MEDS ORDERED: Fentanyl 100 MCG/2 ML VIAL ONE ×2 (16:44→19:12)
[2020-07-21] MEDS ORDERED: traMADol HCl 50 MG TAB PO PRN (19:07)
[2020-07-21] MEDS ORDERED: Ondansetron PF 4 MG/2 ML Vial SLOW IVP PRN (19:07)
[2020-07-21] MEDS ORDERED: Fentanyl 100 MCG/2 ML VIAL SLOW IVP PRN (19:07)
[2020-07-21] MEDS ORDERED: Acetaminophen 325 MG TAB PO PRN (19:07)
[2020-07-21] MEDS ORDERED: HYDROcodone/Acetaminophen 5/325 mg Tablet PO PRN (19:07)
[2020-07-21] MEDS ORDERED: Melatonin 3 MG TAB PO PRN (19:10)
--- NOTE | 2020-07-21 19:59 | RAD ---
RIGHT ANKLE TWO VIEWS: History: Right ankle pain FINDINGS: Three spot fluoroscopic intraoperative films of the right ankle demonstrate post op changes of two sc rews through the medial malleolus and plate and screws in the distal fibula. Four screws extend from the fibula into the medial aspect of the tibia. Anatomic alignment is maintained. POS: OFF
[2020-07-21] MEDS ORDERED: traMADol HCl 50 MG TAB ONE (20:00)
--- NOTE | 2020-07-21 20:19 | OP ---
DATE OF PROCEDURE: 07/21/2020 PROCEDURE PERFORMED: Open reduction and internal fixation of right ankle with hardware removal. PREOPERATIVE DIAGNOSIS: Failed right ankle open reduction and internal fixation with loss of alignment and subluxation. POSTOPERATIVE DIAGNOSIS: Failed right ankle open reduction and internal fixation with loss of alignment and subluxation. COMPLICATIONS: None. ESTIMATED BLOOD LOSS: 100 mL. PERSONAL PROTECTION SPECIALIST: Lukas Randhawa PA-C IMPLANTS: Synthes 3.5 mm LC-DC plate with multiple 4.0 and 3.5 screws. INDICATIONS: Mr. Soto is a 40-year-old male, who has had an ankle fracture dislocation, bimalleolar. He was treated with open reduction and internal fixation recently. Unfortunately, his hardware has failed. He has recurrent lateral subluxation of the ankle with near dislocation. He has been indicated now for revision surgery to restore anatomic alignment and hopefully promote healing in an anatomic fashion. Risks have been reviewed in detail. He has elected to proceed with the operation at this point. DESCRIPTION OF PROCEDURE: Mr. Soto was identified in the preoperative holding area. His correct extremity was marked. He was carried to the operating room. He was positioned supine. General anesthesia was induced. A multidisciplinary time-out was performed. The right lower extremity was prepped and draped in sterile fashion. We began the procedure with open incision over the lateral malleolus, dissecting down through the subcutaneous tissues to the bony level. We exposed the underlying fibular plate and screws. These were removed. The patient's fracture was still mobile. We pulled traction as well as lateral force on the ankle reducing the ankle back under the ankle mortise. We took x-rays confirming this. Once we had an adequate reduction of the ankle, we proceeded to place a 3.5 mm plate over the fibula. We used this stronger plate given that the previous one-third tubular plate has failed. At this point, we placed multiple screws distally as well as multiple screws proximally. The proximal screws went into the tibia to enhance fixation. We took x-ray images throughout this procedure. At this point, we filled the remaining appropriate screw holes. A syndesmosis clamp was used during this operation as well. We took final images. We thoroughly irrigated with copious lavage as well as some Betadine solution. We then closed in layers. A sterile dressing and a splint was placed. The patient was taken to the recovery room in good condition. The assistant auditor surgeon was responsible for positioning the patient, preparing the injured extremity, applying the tourniquet, and assisting in preparation for surgery. The assistant auditor was instrumental in reducing the injured limb by applying traction and reduction maneuvers as well as holding retractors and reduction tools. The assistant auditor also was instrumental in assisting in exposure throughout the operation using appropriate retractors. The assistant auditor participated in closure of the operative site as well as dressing application and splint application. Job ID: [id number]
[2020-07-21 20:58] VITALS: BMI 33.1
[2020-07-21] MEDS ORDERED: Oxybutynin ER 5 MG TAB PO SCH (21:00)
[2020-07-21] MEDS ORDERED: Gabapentin 300 MG CAP PO SCH (22:30)
[2020-07-21] MEDS: CEFAZOLIN 2 GM in Premix Bag 1 BAG IVPB SCH (23:47)
[2020-07-22 05:42] LABS: #Lymphocytes 0.7 thou/uL (1.20-3.40); #Monocytes 0.1 thou/uL (0.11-0.59); #Neutrophils 2.8 thou/uL (1.40-6.50); %Basophils 0.9 % (0.0-1.0); %Eosinophils 0.1 % (0.0-10.0); %Lymphocytes 19.9 % (21.0-51.0); %Monocytes 2.3 % (0.0-10.0); %Neutrophils 76.8 % (42.0-75.0); Mean Corpuscular HGB CONC 31.8 g/dL (32.0-36.0); Mean Corpuscular Hemoglobin 29.4 pg (27.0-31.0); Mean Corpuscular Volume 92.6 fL (78.0-98.0); Mean Platelet Volume 9.1 fL (7.4-10.4); Platelet Count 130 thou/uL (130-400); RBC Distribution Width 11.8 % (11.5-14.5); Red Blood Cell (RBC) Count 5.11 mill/uL (4.70-6.10); White Blood Cell (WBC) Count 3.6 thou/uL (4.8-10.8)
[2020-07-22] MEDS ORDERED: COBICISTAT PO SCH (09:00)
[2020-07-22] MEDS ORDERED: (Elviteg/Cob/Emtri/Tenof Alafen [Genvoya Tablet] 1 EACH Tablet) PO SCH (09:00)
[2020-07-22] MEDS ORDERED: Gabapentin 300 MG CAP PO SCH ×2 (09:00→21:00)
[2020-07-22] MEDS ORDERED: DARUNAVIR PO SCH (09:00)
[2020-07-22] MEDS ORDERED: Prevnar 13-Val Conj/PF 0.5 ML SYRINGE IM ONE (09:00)
[2020-07-22] MEDS ORDERED: Sulfameth/Trimethoprim DS 800-160mg TAB PO SCH (09:00)
[2020-07-22] MEDS: CEFAZOLIN 2 GM in Premix Bag 1 BAG IVPB SCH (10:41)
[2020-07-22 15:20] VITALS: BP 105/64; TEMP 99.4
== END 2020-07-22 16:09 | disposition home or self-care (01) ==
LOC: SDC 13:25 → SURG A 19:11
PROVIDERS: ADMIT Orthopaedic Surgery; ATTEND Orthopaedic Surgery
PROC: 0QSJ04Z Reposition Right Fibula with Internal Fixation Device, Open Approach (ICD-10-PCS; principal; 2020-07-21)
PROC: 0QSG04Z Reposition Right Tibia with Internal Fixation Device, Open Approach (ICD-10-PCS; 2020-07-21)
DX: S82.851D Displaced trimalleolar fracture of right lower leg, subsequent encounter for closed fracture with routine healing (principal); F41.9 Anxiety disorder, unspecified; F17.200 Nicotine dependence, unspecified, uncomplicated; Z79.899 Other long term (current) drug therapy; Z91.018 Allergy to other foods
CPT/HCPCS: 27814; 73600; 76000; 85025; 97116; 97139; 97530; C1713 ×3; 36415; 96365; 96366; G0378; J0690; J1100; J2250; J2405; J2704; J3010

== ENCOUNTER 2023-07-11 13:22 | Outpatient (CLI) | payer OTHER, MEDICAID | END 2023-07-11 13:23 | disposition home or self-care (01) | LOC: BICRAD 13:22 | PROVIDERS: ATTEND Student in an Organized Health Care Education/Training Program | DX: M25.551 Pain in right hip (principal); M25.552 Pain in left hip | CPT/HCPCS: 36415; 87536 ==

== ENCOUNTER 2025-01-29 11:00 | Outpatient (CLI) | payer OTHER | END 2025-01-29 11:01 | disposition home or self-care (01) | PROVIDERS: ATTEND Family Medicine | DX: R26.9 Unspecified abnormalities of gait and mobility (principal); R53.1 Weakness; R53.82 Chronic fatigue, unspecified; V89.2XXD Person injured in unspecified motor-vehicle accident, traffic, subsequent encounter ==